=== PATIENT | male | born 1965 | race African-American/Black ===

== ENCOUNTER → 2019-12-18 | Outpatient (CLI) | payer BC ==
[2014-08-28 14:35] VITALS: BP 153/93
[~2019-12-18] MED LIST: AMLO10TA4 PO; DOCU-109 PO; HYDR12.58 PO; LABE100T5 PO; LOSA-73 PO; METF500T16 PO; OXYC1TAB19 PO; POTA20TA4 PO; PSYL0.5215 PO; VALS320T2 PO; [UNRECOGNIZED DRUG - REMARK]
[2019-12-18 15:25] LABS: PROTHROMBIN TIME PATIENT 12.6 SEC (11.7-14.0)
== END | disposition home or self-care (01) ==
LOC: SURGPAT 13:54
PROVIDERS: ATTEND Specialist
DX: K40.90 Unilateral inguinal hernia, without obstruction or gangrene, not specified as recurrent (principal)
CPT/HCPCS: 36415; 85610

== ENCOUNTER 2019-12-25 09:19 | Day surgery (SDC) | payer BC ==
[~2019-12-25] VITALS: Ht 182.9 cm; Wt 93.0 kg
[~2019-12-25 09:19] MED LIST changes: -DOCU-109 PO; +HYDROmorphone 2 MG/ML VIAL IV PRN; +IV RINGERS,LACTATED 1000ML 1,000 ML IV SCH; +LIDOCAINE 1% PF 2 ML VIAL. ID PRN; +MORPHINE SULFATE 2 MG/ML VIAL. IV PRN; +ONDANSETRON PF 4 MG/2 ML VIAL. IV PRN; -OXYC1TAB19 PO; +PROCHLORPERAZINE 10 MG/2 ML VIAL. IV PRN; -PSYL0.5215 PO; +ceFAZolin SODIUM IV Push 1 GM VIAL. IVP PRN; +fentaNYL PF VIAL 100 MCG/2 ML VIAL IV PRN
[2019-12-25] MEDS ORDERED: PROPOFOL 20 ML IV ONE (09:49)
[2019-12-25] MEDS ORDERED: LIDOCAINE 2% PF 5 ML VIAL. ONE (09:49)
[2019-12-25] MEDS ORDERED: ONDANSETRON PF 4 MG/2 ML VIAL. ONE (09:49)
[2019-12-25] MEDS ORDERED: DEXAMETHASONE SOD PHOS 4 MG/ML VIAL ONE (09:49)
[2019-12-25] MEDS ORDERED: ROCURONIUM 50 MG/5 ML VIAL. ONE ×2 (09:50→13:42)
[2019-12-25] MEDS ORDERED: MIDAZOLAM HCL/PF 2 MG/2 ML VIAL. ONE (09:50)
[2019-12-25] MEDS ORDERED: fentaNYL PF VIAL 100 MCG/2 ML VIAL ONE ×2 (09:50→14:33)
[2019-12-25] MEDS ORDERED: BUPIVACAINE-EPI 0.5%-1:200000 MPF 30 ML VIAL. ONE ×2 (11:01)
--- NOTE | 2019-12-25 11:49 | HP ---
ADMIT DATE: 12/25/2019 HISTORY OF PRESENT ILLNESS: The patient comes in because of a mass in the left groin. The history is that he has had a mass that was started out smaller and has gotten larger over the past 2 years. It is slowly getting large and large and large and he wants to have this fixed. The patient denies any other real symptoms except for some pain in the left inguinal area at times. PAST MEDICAL HISTORY: Shows normal childhood diseases. He does have hypertension for which he takes medication and takes metformin for diabetes. He does not take any anticoagulants or other medicines. He has no other diseases to his knowledge. PAST SURGICAL HISTORY: He has never had surgery. ALLERGIES: He denies any allergies. SOCIAL HISTORY: Shows that he used to smoke. He has not smoked for about 20 years. He does drink only socially now, but not enough to get inebriated and does not use illicit drugs. REVIEW OF SYSTEMS: Negative except for pain and the mass in the left inguinal area and the pain is minimum and is on and off. He states in the morning the mass is gone. FAMILY HISTORY: Noncontributory. PHYSICAL EXAMINATION: GENERAL: Shows an alert male, in no acute distress. HEENT: Grossly normal. CHEST: Clear bilaterally to auscultation. HEART: Had no murmurs, heaves, friction rubs or thrills and the rate was estimated to be at 72 beats per minute and it was regular. ABDOMEN: Negative. Genitalia male normal and he did have a mass in the left inguinal area. The mass increased with intra-abdominal pressure and getting laid down and being very quiet, we were able to palpate it. There was no mass on the right side. No evidence of a right inguinal hernia. EXTREMITIES: As stated before, grossly normal. IMPRESSION: 1. Hypertension. 2. Diabetes. 3. Left inguinal hernia. PLAN: Per his request, we will plan to repair at a day that is satisfactory with him. BINTA DE LA PAZ MD DR: MK/alfonso JOB#: [id number] / [id number]
--- NOTE | 2019-12-25 11:59 | PDOC ---
SURGICAL PROGRESS NOTE Subjective No change in dictated H&P. Vital Signs Vital Signs Date Time Temp Pulse Resp B/P (MAP) Pulse Ox O2 Delivery O2 Flow Rate FiO2 12/25/19 09:49 98.8 67 156/99 99 98.8 12/25/19 09:45 20 Labs Laboratory Tests Test 12/25/19 09:53 Glucose (Fingerstick) 129 mg/dL (70-99) Laboratory Tests Test 12/25/19 09:53 Glucose (Fingerstick) 129 mg/dL (70-99) BINTA DE LA PAZ MD Dec 25, 2019 11:59
--- NOTE | 2019-12-25 12:05 | PDOC ---
SURGICAL PROGRESS NOTE Subjective Op Note: Surgeon.........................................Yusef Pre op diag....................................Incarcerated left inguinal hernia Post op diag..................................same Anesthesia....................................general Procedure......................................repair incarcerated left inguinal hernia Drains...........................................none Fluids............................................see anesthesia sheet Blood loss.....................................15cc Condition.......................................satisfactory Vital Signs Vital Signs Date Time Temp Pulse Resp B/P (MAP) Pulse Ox O2 Delivery O2 Flow Rate FiO2 12/25/19 09:49 98.8 67 156/99 99 98.8 12/25/19 09:45 20 Labs Laboratory Tests Test 12/25/19 09:53 Glucose (Fingerstick) 129 mg/dL (70-99) Laboratory Tests Test 12/25/19 09:53 Glucose (Fingerstick) 129 mg/dL (70-99) BINTA DE LA PAZ MD Dec 25, 2019 12:05
[2019-12-25] MEDS ORDERED: SEVOFLURANE 61 TO 120 MINUTES. IH ONE (12:17)
[2019-12-25] MEDS ORDERED: PHENYLEPHRINE in 0.9% NACL PF 1 MG/10 ML SYRINGE. IV ONE (12:38)
[2019-12-25] MEDS ORDERED: GLYCOPYRROLATE 1 MG/5 ML VIAL. ONE (12:42)
[2019-12-25] MEDS ORDERED: NEOSTIGMINE METHYLSULFATE 5 MG/5 ML SYRINGE. ONE (12:42)
[2019-12-25] MEDS ORDERED: SEVOFLURANE > 120 MINUTES. IH ONE (14:55)
[2019-12-25] MEDS ORDERED: INSULIN LISPRO 100 UNIT/ML 3ML VIAL for OP,RR ONLY. SQ PRN (15:15)
--- NOTE | 2019-12-25 15:28 | DISCH ---
DISCHARGE INSTRUCTIONS Condition on Discharge Condition on Discharge: Stable Activity After Discharge Activity Instructions for Disc: Activity as tolerated, Avoid exertion Weight Bearing Status after Di: No restrictions Diet after Discharge Diet after Discharge: Clear Liquid, Regular Diet Texture: Regular Liquid Texture: Thin Liquid Swallowing Supervision: None needed Wound Incision Care Other wound/incision instructi: leve dressing on as long as possible. Do not chnge unless necessary Checks after Discharge Checks after discharge: Check blood press - daily Follow-Up Follow up with: Dr De La Paz 2 weeks BINTA DE LA PAZ MD Dec 25, 2019 15:28
[2019-12-25] MEDS ORDERED: OXYC1TAB19 PO (15:40)
[2019-12-25] MEDS ORDERED: DOCU-109 PO (15:41)
[2019-12-25] MEDS ORDERED: PSYL0.5215 PO (15:43)
[2019-12-25] MEDS ORDERED: oxyCODONE/APAP 7.5/325 1 TAB TABLET PO ONE (15:45)
[2019-12-25 16:10] VITALS: BP 164/71
--- NOTE | 2019-12-25 22:28 | OP ---
DATE OF SURGERY: SURGEON: Vamshi De La Paz MD PREOPERATIVE DIAGNOSIS: Left incarcerated inguinal hernia. POSTOPERATIVE DIAGNOSIS: Left incarcerated inguinal hernia. ANESTHESIA: General. PROCEDURE: Repair of left incarcerated inguinal hernia. TECHNIQUE: Under general anesthesia, the patient was properly prepped and draped in routine fashion. An incision was made following the skin lines in the right groin and carried through the skin with a 15 blade. We then used cautery to go down to the fascia. We opened the external oblique aponeurosis in the direction of the fibers spreading scissors under it before we made an incision to make certain we did not injure the nerves. We then dissected the cord from the lateral and medial edges of the fascia and saw a large bulge coming through the posterior inguinal floor. This did not appear to be in the cord but was a direct hernia. The mass was quite large and after we got it opened up and freed from the surrounding structures, we were able to reduce it. We freed it up fairly well. We then saw that the defect in the posterior floor was large and as such to repair this, we used 2 large PerFix plugs sutured together with 2-0 Prolene and placed these in the area and this reduced the hernia and kept it in place. We sutured it to the shelving edge of Poupart ligament, inferiorly the transversalis fascia and also at the pubic tubercle to keep it in place, so they would not move. This having been done, we then passed the patch. After we had freed up all the tissue from the surrounding tissues around the cord structures and had gone under the cord at the pubic tubercle, pulled it up and divided the cremasteric fibers. We then laid the patch and cut a piece so that it would fit into the posterior inguinal floor, cover it and complete the hernia repair. The PerFix plug was in place and holding the hernia in place. We then starting with the pubic tubercle, used #2-0 Prolene, one through the fascia and carried it around to Poupart ligament up past the internal inguinal ring. We had sutured the eye and the patch that we had made and sutured around the cord structures using 2-0 Prolene, so that that would be not too tight and not strangulating the cord. This was reduced and placed in the posterior floor and the shelving edge border for the Poupart ligament had been sutured to the mesh. Medially, we ran the suture, taking transversalis fascia and taking it around the internal inguinal ring and back to the Poupart ligament. Now we had the plug in place and the patch with firm posterior floor. We then inspected the area, injected 0.5% Marcaine with epinephrine for anesthesia and then proceeded to lay the structures back in normal position. The external oblique aponeurosis was then approximated using a running #2-0 Prolene suture. This was likewise anesthetized. The procedure now terminated. We irrigated the subcutaneous with copious amounts of saline and approximated the subcutaneous using interrupted 4-0 Vicryl. The skin was closed using a 5-0 subcuticular Vicryl. Once this was done and all the bleeding had been controlled, we then applied a Tegaderm dressing. The procedure was now terminated as sterile Tegaderm dressing was then placed. ESTIMATED BLOOD LOSS: Less than 15 mL. Fluids given can be obtained from the anesthesia sheet. No drains were used. CONDITION OF THE PATIENT: Satisfactory as he has returned to the recovery room. VAMSHI DE LA PAZ MD DR: MK/alfonso JOB#: [id number] / [id number]
== END 2019-12-25 16:25 | disposition home or self-care (01) ==
LOC: SURG 09:19
PROVIDERS: ATTEND Specialist
DX: K40.30 Unilateral inguinal hernia, with obstruction, without gangrene, not specified as recurrent (principal); I10 Essential (primary) hypertension; E11.9 Type 2 diabetes mellitus without complications; Z87.891 Personal history of nicotine dependence; Z79.899 Other long term (current) drug therapy; Z79.84 Long term (current) use of oral hypoglycemic drugs
CPT/HCPCS: 49507; 82962; J0690; J1100; J2001; J2250; J2370; J2405; J2704; J2710; J3010; J3490; A7015; C1781